=== PATIENT | female | born 1965 ===

== ENCOUNTER 2018-06-19 21:35 | Observation (INO) | payer MEDICAID, OTHER ==
[2018-06-19] MEDS ORDERED: Sodium Chloride 0.9% 1,000 ML IV ONE (22:20)
[2018-06-19] MEDS ORDERED: Sodium Chloride 0.9% 1,000 ML ONE (22:32)
[2018-06-19 22:35] LABS: BASO % 0.4 % (0.0-2.0); EOS % 0.7 % (0.0-4.0); HEMOGLOBIN 12.9 g/dL (11.0-16.0); LYMPH # 1.5 K/uL (1.0-4.3); LYMPH % 34.6 % (20.0-40.0); MEAN CELL VOLUME 86.8 fL (81.0-99.0); MEAN CORPUSCULAR HEMOGLOBIN 30.6 pg (27.0-31.0); MEAN CORPUSCULAR HGB CONC 35.3 g/dL (33.0-37.0); MEAN PLATELET VOLUME 7.8 fL (7.2-11.7); MONO # 0.4 K/uL (0.0-0.8); MONO % 9.1 % (0.0-10.0); NEUT # 2.4 K/uL (1.8-7.0); NEUT % 55.2 % (50.0-75.0); NRBC % 0.1 % (0.0-2.0); RBC 4.22 Mil/uL (3.80-5.20); RED CELL DISTRIBUTION WIDTH 13.4 % (11.5-14.5); WHITE BLOOD COUNT 4.3 K/uL (4.8-10.8)
--- NOTE | 2018-06-19 22:40 | C.PDOC ---
History Of Present Illness 53 year old female with Hx of lupus presents to the ER complaining of sudden onset of chest pain starting an hour ago. Patient describes the pain to be left anterior chest wall radiating to the left shoulder area. Denies sweatiness or SOB. He states the pain has been constant but slightly better since arriving. Denies Hx of HTN or chest pain. Chief Complaint (Nursing): Chest Pain History Per: Patient History/Exam Limitations: no limitations Onset/Duration Of Symptoms: Hrs (1) Current Symptoms Are (Timing): Still Present Alleviating Factors: None Recent travel outside of the [place]: No Past Medical History Reviewed: Historical Data, Nursing Documentation, Vital Signs Vital Signs: Last Vital Signs Temp 98 F 06/19/18 21:55 Pulse 74 06/19/18 21:55 Resp 16 06/19/18 21:55 BP 141/87 06/19/18 21:55 Pulse Ox 98 06/19/18 21:55 Primary Care Provider: Reynaldo Suazo Medical History PMH: HTN, Hyperlipidemia Denies: Chronic Kidney Disease Family History: States: Unknown Family Hx - Social History Hx Tobacco Use: No Hx Alcohol Use: No Hx Substance Use: No Review Of Systems Constitutional: Negative for: Fever, Chills Cardiovascular: Positive for: Chest Pain. Negative for: Palpitations Respiratory: Negative for: Cough, Shortness of Breath Gastrointestinal: Negative for: Nausea, Vomiting Neurological: Negative for: Weakness, Numbness Physical Exam - Physical Exam Appears: Non-toxic Skin: Normal Color, Warm Head: Atraumatic, Normacephalic Eye(s): bilateral: Normal Inspection Oral Mucosa: Moist Chest: Symmetrical, No Tenderness Cardiovascular: Rhythm Regular Respiratory: Normal Breath Sounds, No Rales, No Rhonchi, No Wheezing Gastrointestinal/Abdominal: Soft, No Tenderness Neurological/Psych: Oriented x3, Normal Speech ED Course And Treatment - Laboratory Results Result Diagrams: 06/19/18 22:25 06/19/18 22:25 ECG: Interpreted By Me, Viewed By Me ECG Rhythm: Sinus Rhythm ECG Interpretation: Normal Interpretation Of ECG: NSR, normal tracings. Rate From EC O2 Sat by Pulse Oximetry: 98 (Room air) Pulse Ox Interpretation: Normal - Radiology CXR: Interpreted by Me, Viewed By Me CXR Interpretation: Yes: No Acute Disease, Other (normal chest film). No: Infiltrates Progress Note: EKG, blood work, and CXR ordered. IV fluids, aspirin, and toradol administered. Disposition Discussed With Dr.: Reynaldo Suazo Doctor Will See Patient In The: Hospital Counseled Patient/Family Regarding: Diagnosis - Disposition Disposition: HOSPITALIZED Disposition Time: 23:24 Condition: STABLE Forms: [facility] (Lithuanian) - POA Present On Arrival: None - Clinical Impression Clinical Impression: Chest pain, Lupus (systemic lupus erythematosus) - Scribe Statement The provider has reviewed the documentation as recorded by the Scriboscar Morelos All medical record entries made by the Mercedesiboscar were at my direction and personally dictated by me. I have reviewed the chart and agree that the record accurately reflects my personal performance of the history, physical exam, medical decision making, and the department course for this patient. I have also personally directed, reviewed, and agree with the discharge instructions and disposition.
[2018-06-19 22:44] LABS: ALB/GLOB RATIO 1.4 (1.0-2.1); ALBUMIN 4.1 g/dL (3.5-5.0); ALT/SGPT 21 U/L (9-52); AST/SGOT 23 U/L (14-36); BLOOD UREA NITROGEN 15 mg/dL (7-17); CALCIUM 9.2 mg/dl (8.6-10.4); GFR NON-AFRICAN AMERICAN > 60
[2018-06-20 01:56] VITALS: RESP 20
[2018-06-20 05:27] LABS: CK-MB 0.42 ng/mL (0.0-3.38)
--- NOTE | 2018-06-20 07:43 | RAD ---
Date of service: 06/19/2018 HISTORY: chest pain COMPARISON: No prior. TECHNIQUE: Chest PA and lateral views FINDINGS: LUNGS: No active pulmonary disease. PLEURA: No significant pleural effusion identified. No pneumothorax apparent. CARDIOVASCULAR: No aortic atherosclerotic calcification present. Normal cardiac size. No pulmonary vascular congestion. OSSEOUS STRUCTURES: No significant abnormalities. VISUALIZED UPPER ABDOMEN: Normal. OTHER FINDINGS: None. IMPRESSION: No active disease.
[2018-06-20 08:47] VITALS: BP 132/73; TEMP 97.6; O2SAT 97
[2018-06-20] MEDS ORDERED: Enoxaparin 40 mg Syringe SC SCH (10:00)
[2018-06-20 12:06] LABS: CK-MB 0.29 ng/mL (0.0-3.38)
[2018-06-20 12:09] VITALS: PULSE 62
--- NOTE | 2018-06-20 16:25 | CARD ---
APPROVED REPORT Date of service: 06/20/2018 EKG Measurement Heart [id number] <Conclusion> Normal sinus rhythm Nonspecific T wave abnormality Abnormal ECG
--- NOTE | 2018-06-20 16:53 | CARD ---
APPROVED REPORT Date of service: 06/20/2018 EKG Measurement Heart [id number] <Conclusion> Normal sinus rhythm Nonspecific T wave abnormality Abnormal ECG
--- NOTE | 2018-06-20 22:25 | CP.PCM.HP ---
History of Present Illness - History of Present Illness History of Present Illness: 53-year-old female who developed chest one hour ago comes [facility] room for evaluation. patient states that chest pain became less intense after arriving at the ER. Patient is under treatment for system lupus. patient was admitted for observation following evaluation. Present on Admission - Present on Admission Any Indicators Present on Admission: No History of DVT/PE: No History of Uncontrolled Diabetes: No Urinary Catheter: No Decubitus Ulcer Present: No History Surgical Site Infection Following: None Review of Systems - Review of Systems Systems not reviewed;Unavailable: Other (chest pain) - Constitutional Constitutional: Fatigue - EENT Nose/Mouth/Throat: Dry Mouth - Cardiovascular Cardiovascular: Chest Pain - Reproductive: Female Reproductive:Female: Menopausal - Musculoskeletal Musculoskeletal: Arthralgias - Integumentary Integumentary: Dry Skin Past Patient History - Tetanus Immunizations Tetanus Immunization: Up to Date - Past Medical History & Family History Past Medical History?: Yes - Past Social History Smoking Status: Never Smoked Chewing Tobacco Use: No Cigar Use: No Alcohol: None Drugs: Denies - CARDIAC Hx Hypertension: Yes - PULMONARY Hx Respiratory Disorders: No - NEUROLOGICAL Hx Neurological Disorder: No Hx Migraine: Yes - HEENT Hx HEENT Problems: No - RENAL Hx Chronic Kidney Disease: No - ENDOCRINE/METABOLIC Hx Endocrine Disorders: No - HEMATOLOGICAL/ONCOLOGICAL Hx Blood Disorders: No - INTEGUMENTARY Hx Dermatological Problems: No - MUSCULOSKELETAL/RHEUMATOLOGICAL Hx Musculoskeletal Disorders: No Hx Arthritis: Yes - GASTROINTESTINAL Hx Gastrointestinal Disorders: No - GENITOURINARY/GYNECOLOGICAL Hx Genitourinary Disorders: No - PSYCHIATRIC Hx Substance Use: No - SURGICAL HISTORY Hx Surgeries: Yes Other/Comment: Lasik surgery. - ANESTHESIA Hx Anesthesia: No Meds Allergies/Adverse Reactions: Allergies Allergy/AdvReac Type Severity Reaction Status Date / Time No Known Allergies Allergy Verified 10/25/17 18:00 Physical Exam - Head Exam Head Exam: NORMOCEPHALIC - Eye Exam Eye Exam: Normal appearance Pupil Exam: NORMAL ACCOMODATION - ENT Exam ENT Exam: Normal Exam - Neck Exam Neck exam: Positive for: Normal Inspection - Respiratory Exam Respiratory Exam: NORMAL BREATHING PATTERN - Cardiovascular Exam Cardiovascular Exam: REGULAR RHYTHM - GI/Abdominal Exam GI & Abdominal Exam: Normal Bowel Sounds - Rectal Exam Rectal Exam: Deferred - Exam External exam: NORMAL EXTERNAL EXAM - Back Exam Back exam: NORMAL INSPECTION - Neurological Exam Neurological exam: Oriented x3 - Skin Skin Exam: Dry Results - Vital Signs Recent Vital Signs: Last Vital Signs Temp 97.6 F 06/20/18 08:45 Pulse 62 06/20/18 12:03 Resp 20 06/20/18 08:45 BP 132/73 06/20/18 08:45 Pulse Ox 97 06/20/18 08:45 - Labs Result Diagrams: 06/19/18 22:25 06/19/18 22:25 Labs: Laboratory Results - last 24 hr 06/19/18 06/19/18 06/19/18 22:25 22:25 22:25 WBC 4.3 L RBC 4.22 Hgb 12.9 Hct 36.6 MCV 86.8 MCH 30.6 MCHC 35.3 RDW 13.4 Plt Count 283 MPV 7.8 Neut % (Auto) 55.2 Lymph % (Auto) 34.6 Norton % (Auto) 9.1 Eos % (Auto) 0.7 Baso % (Auto) 0.4 Neut # (Auto) 2.4 Lymph # (Auto) 1.5 Norton # (Auto) 0.4 Eos # (Auto) 0.0 Baso # (Auto) 0.0 D-Dimer, Quantitative < 200 Sodium 138 Potassium 4.1 Chloride 104 Carbon Dioxide 27 Anion Gap 11 BUN 15 Creatinine 0.6 L Est GFR ( Amer) > 60 Est GFR (Non-Af Amer) > 60 Random Glucose 98 Calcium 9.2 Total Bilirubin 0.3 AST 23 ALT 21 Alkaline Phosphatase 98 Total Creatine Kinase CK-MB (Mass) Troponin I < 0.0120 Total Protein 6.9 Albumin 4.1 Globulin 2.8 Albumin/Globulin Ratio 1.4 06/20/18 06/20/18 05:01 11:14 WBC RBC Hgb Hct MCV MCH MCHC RDW Plt Count MPV Neut % (Auto) Lymph % (Auto) Norton % (Auto) Eos % (Auto) Baso % (Auto) Neut # (Auto) Lymph # (Auto) Norton # (Auto) Eos # (Auto) Baso # (Auto) D-Dimer, Quantitative Sodium Potassium Chloride Carbon Dioxide Anion Gap BUN Creatinine Est GFR ( Amer) Est GFR (Non-Af Amer) Random Glucose Calcium Total Bilirubin AST ALT Alkaline Phosphatase Total Creatine Kinase 59 67 CK-MB (Mass) 0.42 0.29 Troponin I < 0.0120 < 0.0120 Total Protein Albumin Globulin Albumin/Globulin Ratio Assessment & Plan (1) Chest pain Status: Acute (2) Headache Status: Acute (3) Lupus (systemic lupus erythematosus) Status: Acute
[2018-06-21] MEDS ORDERED: Pneumococcal 23-Valent Vaccine IM ONE (10:00)
== END 2018-06-20 14:20 | disposition left against medical advice (07) ==
LOC: C.ER 21:35 → C.9E 23:26 → C.6T 06-20 00:01
PROVIDERS: ADMIT Internal Medicine; ATTEND Internal Medicine
DX: R07.9 Chest pain, unspecified (principal); R51 Headache; M32.9 Systemic lupus erythematosus, unspecified; I10 Essential (primary) hypertension; E78.5 Hyperlipidemia, unspecified
CPT/HCPCS: 36415; 71046; 80053; 84484; 85025; 85378; 93005; 96374; G0378; J1650; J1885; J7030